=== PATIENT | female | born 1950 | race Caucasian/White ===

== ENCOUNTER 2023-05-21 08:53 | Emergency (ER) | payer MEDICARE, SELFPAY ==
[2023-05-21 09:03] VITALS: BP 131/63; PULSE 83; RESP 16; TEMP 36.8; O2SAT 96
--- NOTE | 2023-05-21 09:11 | ED.EAR ---
HPI - Ear Problem General Chief complaint: Ear Stated complaint: Right Ear Pain Time Seen by Provider: 05/21/23 09:11 Source: patient, RN notes reviewed and old records reviewed Mode of arrival: ambulatory Limitations: no limitations History of Present Illness HPI Narrative: 73-year-old female who presents to [facility] with complaints of right ear pain which started Wednesday day 4 of symptoms. Patient reports tht she called her doctor's office and was told to get ear drops at pharmacy for the ear pain and to take Tylenol for pain also. She states that she was told if no better to make appointment to be seen or go to express care. Patient deies any feves chills or sweats, denies any body aches or any sore throat or acute sinus congestion of cough. MD Complaint: ear pain Location: right ear Duration: constant Severity: moderate Relieving factors: ear drops and other (Tylenol) Discharge from ear: Reports no Treatment prior to arrival: eardrops and oral analgesic (tylenol) Related Data Home Medications Medication Instructions Recorded Confirmed atorvastatin 40 mg tablet 40 mg DAILY 05/21/23 05/21/23 chlorthalidone 25 mg tablet 12.5 mg DAILY 05/21/23 05/21/23 lisinopril 20 mg tablet 20 mg DAILY 05/21/23 05/21/23 Allergies Allergy/AdvReac Type Severity Reaction Status Date / Time No Known Allergies Allergy Verified 05/21/23 09:10 Review of Systems Review of Systems: CONSTITUTIONAL: Denies malaise, chills, sweats, or fever. EYES: Denies visual changes, redness, or discharge. ENT: Reports no rhinorrhea, congestion, sinus pain, right otalgia and no sore throat. CARDIOVASCULAR: Denies chest pain, palpitations, or edema. RESPIRATORY: Reports cough.? Denies dyspnea. GASTROINTESTINAL: Denies abdominal pain, nausea, vomiting, diarrhea SKIN: Denies rash or itching. MUSCULOSKELETAL: Denies myalgia. NEUROLOGIC: Denies headache. All systems reviewed & are unremarkable except as noted in HPI and below PMFSH Past Medical History Medical History (Updated 05/21/23 @ 09:27 by Ama Solano NP) Breast cancer Diverticulitis Elevated cholesterol Hypertension Surgical History Surgical History (Updated 05/21/23 @ 09:28 by Ama L. Xiomara, PILOT BOAT OPERATOR) History of lumpectomy of right breast radiation treatment History of total left hip arthroplasty History of total right knee replacement Status post cataract extraction of both eyes with insertion of intraocular lens Social History Social History (Updated 05/21/23 @ 09:32 by Ama Solano NP) Smoking status: Never smoker Alcohol intake: unknown Substance use type: does not use Living arrangements: with family Occupation/Education: retired Gender identity (if verbalized by the patient): Female Comments At time of signature, agree with nursing past medical, surgical, social and family history. There is no relevant family history pertinent to the presenting complaint Exam Narrative: GENERAL: Well-appearing, well-nourished, and in no acute distress. HEAD: Normocephalic EYES: PERRLA, conjunctivae clear ENT: Nares clear, turbinates edematous and erythematous, clear discharge. Mucous membranes moist.Right TM red,Left TM pearly horta with dull light reflex bilaterally; no tragal tenderness. Oropharynx erythematous without lesions. Tonsils not enlarged and without exudate, no drooling, no hoarseness, no trismus, uvula midline. NECK: Supple. No lymphadenopathy CHEST: Clear to auscultation, breath sounds equal. No wheezing, rhonchi, rales, or stridor. No respiratory distress, speaks in full sentences.SAO2 96% on room air HEART: Regular rate and rhythm. No murmur heard. SKIN: Warm, dry, no rash. NEURO: Alert and oriented x3. PSYCH: Normal mood and affect Course Course Emergency Course: Patient is aware of diagnosis, understands and agrees to treatment plan.? Anticipatory guidance given.? Patient agrees to follow-up as direct
== END 2023-05-21 09:38 | disposition home or self-care (01) ==
PROVIDERS: Emergency Provider Registered Nurse
DX: H66.91 Otitis media, unspecified, right ear (principal); I10 Essential (primary) hypertension; Z79.899 Other long term (current) drug therapy; Z85.3 Personal history of malignant neoplasm of breast
CPT/HCPCS: 99213; G0463

== ENCOUNTER 2023-06-24 09:26 | Emergency (ER) | payer MEDICARE, SELFPAY ==
[2023-06-24 09:35] VITALS: BP 128/66; PULSE 88; RESP 18; TEMP 36.5; O2SAT 96
--- NOTE | 2023-06-24 09:47 | ED.GENADULT ---
HPI - General Adult General Chief complaint: Upper Respiratory Infection Stated complaint: cough Source: patient, RN notes reviewed and old records reviewed Mode of arrival: ambulatory Limitations: no limitations History of Present Illness HPI narrative: 73-year-old female presents to [facility] with complaints productive cough for 2-3 weeks. Patient states cough is painful with green production. Patient taking [id number] medications with no relief. Patient denies dizziness, weakness, vomiting. MD complaint: Cough Onset (ago): week(s) (2-3) Related Data Home Medications Medication Instructions Recorded Confirmed atorvastatin 40 mg tablet 40 mg DAILY 05/21/23 06/24/23 chlorthalidone 25 mg tablet 12.5 mg DAILY 05/21/23 06/24/23 lisinopril 20 mg tablet 20 mg DAILY 05/21/23 06/24/23 Allergies Allergy/AdvReac Type Severity Reaction Status Date / Time No Known Allergies Allergy Verified 05/21/23 09:10 Review of Systems Constitutional: Constitutional: Reports no additional constitutional complaints, Denies body ache(s), Denies chills, Denies fatigue, Denies fever(s) and Denies headache(s) Eyes: Eyes: Reports no additional eye complaints and Denies blurry vision ENT: Reports system reviewed and no additional complaints, except as documented, Denies vertigo, Denies dizziness, Denies ear discharge, Denies otalgia, Denies facial pain, Denies headache(s), Denies nasal congestion, Denies nasal discharge, Denies sinus pain, Denies sinus pressure and Denies sore throat Cardiovascular: Cardiovascular: Reports no additional cardiovascular complaints, Denies chest pain, Denies chest pain at rest, Denies rapid heart rate and Denies dyspnea Respiratory: Respiratory: Reports no additional respiratory complaints, Reports chest congestion, Reports cough, Reports excessive phlegm production ( thick green), Denies pain on inspiration, Reports pain with cough and Denies dyspnea Gastrointestinal: Gastrointestinal: Denies abdominal pain, Denies diarrhea, Denies nausea and Denies vomiting Integumentary/Breasts: Skin/Breast: Denies rash Neurologic: Reports system reviewed and no additional complaints, except as documented, Denies vertigo, Denies dizziness and Denies headache(s) Endocrine: Endocrine: Denies fatigue PMF Past Medical History Medical History Breast cancer Diverticulitis Elevated cholesterol Hypertension Surgical History Surgical History History of lumpectomy of right breast radiation treatment History of total left hip arthroplasty History of total right knee replacement Status post cataract extraction of both eyes with insertion of intraocular lens Social History Social History Smoking status: Never smoker Alcohol intake: unknown Substance use type: does not use Living arrangements: with family Occupation/Education: retired Gender identity (if verbalized by the patient): Female Comments At the time of my signature, I reviewed and agree with the nursing past medical, surgical, social, and family history. There is no relevant family history pertinent to the patient complaint. Exam Const: General: cooperative, healthy appearing, no acute distress and well nourished Nutritional Appearance: well nourished Orientation/consciousness: patient oriented x3 Limitations: no limitations HENMT: Head: normal to inspection and normocephalic Ears: external ears normal, TM's normal bilaterally, mastoids normal and Abnormal EAC present Face/Nose/Sinus: normal facial exam Face and sinus: normal facial exam Mouth: Yes Normal oral and palatal mucosa present, Yes oropharynx normal and Yes moist mucous membranes Throat: tonsils normal, uvula midline and no uvular edema Eyes: General: appearance normal, both eyes and all related structures Scl
== END 2023-06-24 10:05 | disposition home or self-care (01) ==
PROVIDERS: Emergency Provider Registered Nurse
DX: J20.9 Acute bronchitis, unspecified (principal); E78.00 Pure hypercholesterolemia, unspecified; I10 Essential (primary) hypertension; Z85.3 Personal history of malignant neoplasm of breast; Z90.11 Acquired absence of right breast and nipple; Z96.651 Presence of right artificial knee joint; Z96.1 Presence of intraocular lens; Z98.42 Cataract extraction status, left eye; Z98.41 Cataract extraction status, right eye
CPT/HCPCS: 99213; G0463

== ENCOUNTER 2023-07-15 08:33 | Emergency (ER) | payer MEDICARE, SELFPAY ==
--- NOTE | ~2023-07-15 | XR_ITS ---
Clinical Indication: Cough PA and lateral views of the chest: Comparison: None Findings: The lungs are clear, without evidence of focal consolidation or pleural effusion. Cardiome diastinal silhouette is within normal limits. Bones and soft tissues are unremarkable. Impression: Normal chest. Reviewed, dictated and finalized at [facility]. 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
[2023-07-15 08:44] VITALS: BP 117/60; PULSE 84; RESP 20; TEMP 36.6; O2SAT 97
[2023-07-15 09:00] VITALS: BP 117/60; PULSE 84; RESP 20; TEMP 36.6; O2SAT 97
--- NOTE | 2023-07-15 09:08 | ED.URI ---
HPI - URI/Sore Throat General Chief Complaint: Upper Respiratory Infection Stated Complaint: Cough Time Seen by Provider: 07/15/23 09:09 Source: patient Mode of arrival: ambulatory Limitations: no limitations History of Present Illness HPI Narrative: 73 y/o female with hx HTN and breast CA presented for c/o cough for 2 months. Cough is productive of thick green sputum. States she was seen 06/24 for the same complaint, prescribed doxy and benzonatate without significant improvement. Started Mucinex DM. Denies sob, wheezing, hemoptysis, fatigue, n/v/d/f/c. Related Data Home Medications Medication Instructions Recorded Confirmed atorvastatin 40 mg tablet 40 mg DAILY 05/21/23 07/15/23 chlorthalidone 25 mg tablet 12.5 mg DAILY 05/21/23 07/15/23 lisinopril 20 mg tablet 20 mg DAILY 05/21/23 07/15/23 Allergies Allergy/AdvReac Type Severity Reaction Status Date / Time No Known Allergies Allergy Verified 07/15/23 09:00 Review of Systems Review of Systems: CONSTITUTIONAL: Denies body aches, fever, chills, or sweats. EYES: Denies visual changes, redness, or discharge. ENT: Denies rhinorrhea, congestion, sore throat, or otalgia. CARDIOVASCULAR: Denies chest pain, palpitations, or edema. RESPIRATORY: Reports cough, denies sob, wheezing. SKIN: Denies rash, itching, or wounds. MUSCULOSKELETAL: Denies back pain, joint pain, or myalgia. NEUROLOGIC: Denies headache, numbness, tingling, or weakness. All systems reviewed & are unremarkable except as noted in HPI and below PMFSH Past Medical History Medical History Breast cancer Diverticulitis Elevated cholesterol Hypertension Surgical History Surgical History History of lumpectomy of right breast radiation treatment History of total left hip arthroplasty History of total right knee replacement Status post cataract extraction of both eyes with insertion of intraocular lens Social History Social History Smoking status: Never smoker Alcohol intake: unknown Substance use type: does not use Living arrangements: with family Occupation/Education: retired Gender identity (if verbalized by the patient): Female Comments At time of signature, I have reviewed and agree with nursing past medical, surgical, social and family history unless otherwise noted. Please see nursing chart for further information. There is no relevant family history pertinent to the presenting complaint Exam Narrative: GENERAL: Well-appearing, in no acute distress. EYES: EOMI. No redness or drainage. Conjunctivae normal. ENT: Mucous membranes pink and moist. No rhinorrhea. NECK: Normal AROM. Supple. CHEST: No respiratory distress. Wheezing to bases. Occasional moist potable water treatment operator cough. HEART: Regular rate and rhythm. No murmur appreciated. ABDOMEN: Soft, nontender, nondistended, normal active bowel sounds. EXTREMITIES: Normal range of motion. No edema. SKIN: Warm, dry, no rash. Capillary refill normal. Normal skin turgor. NEURO: Alert and oriented x3. Gait steady. PSYCH: Normal affect. Talkative Course Course Emergency Course: Patient is aware of diagnosis, understands and agrees to treatment plan. Anticipatory guidance given. Patient agrees to follow-up as directed and is aware of reasons to seek care at the emergency department. Portions of this record may have been created with voice recognition software Level of Care: Express Care Visit Vital Signs Vital signs: Vital Signs Temperature 97.9 F 07/15/23 08:44 Pulse Rate 84 07/15/23 08:44 Respiratory Rate 20 07/15/23 08:44 Blood Pressure 117/60 07/15/23 08:44 Pulse Oximetry 97 07/15/23 08:44 Oxygen Delivery Room Air 07/15/23 08:44 Temperature 97.9 F 07/15/23 09:00 Pulse Rate 84 07/15/23 09:00 Respiratory Rate 20 07/15/23
== END 2023-07-15 09:28 | disposition home or self-care (01) ==
PROVIDERS: Emergency Provider Nurse Practitioner Family
DX: J40 Bronchitis, not specified as acute or chronic (principal); E78.00 Pure hypercholesterolemia, unspecified; I10 Essential (primary) hypertension; Z85.3 Personal history of malignant neoplasm of breast; Z90.11 Acquired absence of right breast and nipple; Z96.642 Presence of left artificial hip joint; Z96.651 Presence of right artificial knee joint; Z96.1 Presence of intraocular lens; Z98.42 Cataract extraction status, left eye; Z98.41 Cataract extraction status, right eye
CPT/HCPCS: 71046; 99213; G0463

== ENCOUNTER 2025-01-04 08:31 | Emergency (ER) | payer MEDICARE, SELFPAY ==
--- OUTSIDE RECORDS SUMMARY | 2025-01-04 08:36 | XMS_ITS | Encounter Summary ---
Author Organization [facility] Address [address] [place] [address] Care Team Providers Care Security Risk Analyst Name Role Phone Shelly Bolivar MD Primary Care Provider [phone] Encounter Details Date Type Department Care Team (Latest Contact Info) Description 11/02/2008 Outpatient Historical [facility], [address] Leonor Mejia MD NO ADDRESS ON FILE Other and Unspecified Hyperlipidemia Social History Tobacco Use Types Packs/Day Years Used Date Smoking Tobacco: Never Assessed Comments No Sex and Gender Information Value Date Recorded Sex Assigned at Not on file Legal Sex Female 5:39 AM INTERFACE DEVELOPER Gender Identity Not on file Sexual Orientation Straight 03/20/2024 9: 57 AM CDT documented as of this encounter Plan of Treatment Upcoming Encounters Date Type Department Care Team (Late st Contact Info) Description 04/16/2025 9:00 AM INTERFACE DEVELOPER 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 [facility] Primary Care [address] [address] Shelly Boilvar MD [address] [phone] documented as of this encounter Visit Diagnoses Diagnosis Other and unspecified hyperlipidemia documented in this encounter Care Teams Security Risk Analyst Relationship Specialty Start Date End Date Shelly Bolivar MD [address] [phone] PCP - General Family Practice 03/12/20 documented as of this encounter
--- OUTSIDE RECORDS SUMMARY | 2025-01-04 08:36 | XMS_ITS | Encounter Summary ---
Author Organization [facility] Address [address] [place] [address] Care Team Providers Care Maintenance Worker Municipal Name Role Phone Shelly Bolivar MD Primary Care Provider [phone] Reason for Visit * Reason Comments Clinical Consult Before Scheduling Encounter Details Date Type Department Care Team (Late st Contact Info) Description 04/25/2024 Telephone [facility] Primary Care [facility] [address] [place] [address] [address] [place] [address] Shelly Bolivar MD [address] [facility] [address] [place] [address] Clinical Consult Before Scheduling Social History Tobacco Use Types Packs/Day Years Used Date Smoking Tobacco: Former Cigarettes 2.1 2 0 11/12/1972 - 11/12/1974 Smokeless Tobacco: Never Comments:quit 1974 Alcohol Use Standard Drinks/Week Comments Yes 1.7 (1 standard drink = 0.6 oz p ure alcohol) Comments No Sex and Gender Information Value Date Recorded Sex Assigned at Not on file Legal Sex Female 5:39 AM BEAD PICKER Gender Identity Not on file Sexual Orientation Straight 03/20/2024 9: 57 AM CDT documented as of this encounter Miscellaneous Notes * Telephone Encounter - Paulette Murillo - 04/25/2024 3:05 PM CST Appt was made for today at 2:00pm. PICKER * Telephone Encounter - Lotus Reynolds - 04/25/2024 8:15 AM CST Copied from [facility] #[id number]. Topic: Symptomatic Care >> Apr 25, 2024 8:07 AM Lotus S wrote: Caller has new symptoms and is seeking care. Age Range/Symptom: Adult: 18+ - Other Symptoms: Depression Does patient have any of the following other urgent symptoms: No urgent symptoms requiring warm call transfer {Patient Access Instructions Verify in [facility] if the Clinic offers Walk In hours If no walk in hours or patient prefers to schedule, then schedule appointment with Clinic (Does notneed to be 24 - 48 hours) Search Team based scheduling for SAME DAY [166] Search Team based scheduling for OFFICE VISIT ESTABLISHED [130] Search Team based scheduling for VIDEO VISIT [674] Were you able to schedule appointment within patient's desired timeframe? No [place] the [place] in[place] Unable to schedule appointment within patient's desired timeframe. Patient declined all other options for immediate care, preferring to schedule first available. Scheduled appointment for 05/15. If this is not clinically appropriate, please contact patient. PICKER documented in this encounter Plan of Treatment Upcoming Encounters Date Type Department Care Team (Late st Contact Info) Description 04/16/2025 9:00 AM BEAD PICKER 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 [facility] Primary Care [address] [phone] Shelly Bolivar MD [address] [phone] documented as of this encounter Visit Diagnoses Not on filedocumented in this encounter Additional Health Concerns Assessment Noted Time PHQ-9 Depression Total Score: 4 04/25/20 24 2:00 PM BEAD PICKER documented as of this encounter Care Teams Maintenance Worker Municipal Relationship Specialty Start Date End Date Shelly Bolivar MD [address] [place] [phone] PCP - General Family Practice 03/12/20 documented as of this encounter
--- OUTSIDE RECORDS SUMMARY | 2025-01-04 08:36 | XMS_ITS | Continuity of Care Document ---
Author Organization [facility] Address [address] [place] [address] Phone Care Team Providers Care Mule Rider Name Role Phone Joby Cobb Unavailable Unavailable Allergies, Adverse Reactions, Alerts Substance Reaction Status Criticality No Known Allergies Active No Inform ation Medications Medication Instructions Dosage Effective Dates (start - stop) Status Comments lisinopril 2.5 mg tablet take 1 tablet (2.5MG) by oral route every day 2.5 MG - Active lovastatin 10 mg tablet take 1 tablet (10MG) by oral route every day with the evening meal 10 MG - Active Advance Directives Directive Yes / No Effective Date File Name No Information Encounters Encounter Description Practice Location Reason(s) For Visit Diagnoses Date Provider Providers Copied on Encounter [facility] , [address], [place], [address], [place] tel:[phone] [facility] [place] LumbagoPain in joint involving pelvic region and thigh 4 Jordyn Hemphill. [address], [place], [address]. [phone] [facility] , [address], [place], [address], [place] tel:[phone] [facility] [place] Pain in joint involving shoulder region 2 Jordyn Orozco [address], [place], [address]. tel:[phone] [facility] , [address], [place], [address], [place] tel:[phone] [facility] [place] Pain in joint involving shoulder region 2 Jordyn Hemphill. [address], [place], [address]. tel:[phone] Family History Family Member Type Diagnosis Age At Onset No Information Payers Payer name Insurance type Covered democrat ID Authoriza tion(s) No Information Social History Type Description Quantity Date Captured Comments Sex Female Smoking Status No Information Chief Complaint And Reason For Visit No Information Reason For Referral Reason For Referral No Information History Of Present Illness Encounter Date Complaint History Of Prese nt Illness No Information Functional Status Date Functional Assessmen t No Information Instructions Date Instruction Additional Infor mation No Information Assessments Type Assessment Date No Information Patient Care Teams Name Effective Dates (start - stop) Status Members No Information
--- OUTSIDE RECORDS SUMMARY | 2025-01-04 08:36 | XMS_ITS | Clinical Summary ---
[facility] [employer] Address [address] [place] [address] Care Team Providers Care Solar Installation Manager Name Role Phone Shelly Bolivar MD Primary Care Provider Allergies Active Allergy Reactions Criticality Noted Date Comments Poison Krysta Extract Rash Low 01/23/2015 Medications atorvastatin (LIPITOR) 40 mg tabletIndications:M ixed hyperlipidemia TAKE 1 TABLET(40 MG) BY MOUTH DAILY 100 Tablet 3 4 Active lisinopriL (PRINIVIL) 20 mg tabletIndications:E ssential hypertension TAKE 1 TABLET(20 MG) BY MOUTH DAILY 100 Tablet 3 4 Active chlorthalidone (HYGROTON) 25 mg tabletIndications:E ssential hypertension TAKE 1/2 TABLET BY MOUTH EVERY DAY WITH ORANGE JUICE AND BANANA 45 Tablet 3 5 Active Active Problems Problem Noted Date Diagnosed Date Prediabetes 04/06/2023 Assessment & Plan (10/08/2023 7:27 PM CDT): Last A1c 6.0%; work on healthy diet, avoid sweets, simple carbohydrates. Monitor blood sugar. History of colon polyps 09/06/2019 History of partial knee replacement 09/12/2017 History of left hip replacement 09/29/2016 Mixed hyperlipidemia 06/30/2016 Assessment & Plan (10/08/2023 7:27 PM CDT): Controlled with atorvastatin. Will monitor lipids, continue current medication. Essential hypertension 05/29/2015 Assessment & Plan (10/08/2023 7:27 PM CDT): BP controlled with chlorthalidone, lisinopril. Will monitor renal function, BP and continue current medication. Hx of breast cancer 04/14/2014 Overview (05/14/2014): right , DCIS, radiation, node neg Assessment & Plan (10/08/2023 7:27 PM CDT): Due for mammogram - ordered this encounter. Major depressive disorder, single episode 2013 Assessment & Plan (10/08/2023 7:27 PM CDT): Stable. Doing well. Supportive counseling given. Continue monitoring. Resolved Problems Problem Noted Date Diagnosed Date Resolved Date Midline low back pain with l eft-sided sciatica 05/29/2015 10/09/2020 Left hip pain 05/29/2015 09/29/2016 Left sided sciatica 11/21/2014 05/29/20 15 Depression 08/10/2013 09/29/2016 Hyperlipidemia 06/30/2016 HTN (hypertension) 5 Encounters Date Type Department Care Team Description 12/27/2024 External Device Data [facility] Provider, Abstract 12/26/2024 External Device Data [facility] Provider, Abstract 12/05/2024 External Device Data [facility] Provider, Abstract 11/28/2024 External Device Data [facility] Provider, Abstract 11/07/2024 External Device Data [facility] Provider, Abstract 11/02/2024 External Device Data [facility] Provider, Abstract 11/01/2024 External Device Data [facility] Provider, Abstract 10/31/2024 External Device Data [facility] Provider, Abstract 10/24/[address] [facility] [address] [place] [phone] Shelly Bolivar MD 10/24/[address] [facility] [address] [place] [address] Shelly Bolivar MD 10/24/[address] [facility] [address] [phone] Shelly Bolivar MD Needs Orders Written from Last 3 Months Immunizations Immunization Administration Dates Next Due (COMIRNATY)(12 YR UP) COVID- 19 VACCINE, MRNA, SPIKE PROTEIN, LNP, ROYER(PF) 30 MCG/0.3 ML IM SUSP 03/19/2023 (PFIZER)(12 YR UP) COVID-19 VACCINE - EMERGENCY USE AUTHORIZATION, MRNA, [id number](PF) 30 MCG/0.3 ML IM SUSP 11/06/2021,03/16/2021 (PNEUMOVAX 23)(50 YRS UP) PN EUMOCOCCAL POLYSACCHARIDE (PPV23) 0.5 ML, IM 05/29/2015 (PREVNAR 13)(6 WKS UP) PNEUM OCOCCAL CONJUGATE (PCV13) 0.5 ML, IM 06/30/2016 (TDVAX)(7 YRS UP) TETANUS AN D DIPHTHERIA TOXOIDS, ADSORBED (2 LF OF TETANUS TOXOID AND 2 LF OF DIPHTHERIA TOXOID), 0.5ML (PF), IM 10/02/2007 INFLUENZA VACCINE QUADRIVALE NT 6 MOS UP CELL DERIVED PF IM 03/28/2020 Influenza Seasonal Unspecifi ed Formulation IM 04/05/2023,03/14/2022,04/08/2021,05/23 Family History Medical History Relation Name Comments Healthy Brother Cancer Mother breast Heart Failure Mother after tri ple bypass age 68 Breast Cancer Sister Healthy Sister Relation Name Status Comments Brother Alive Father Maternal Grandfather Maternal Grandmother Mother Paternal Grandfather Paternal Grandmother Sister Alive Social History Tobacco Use Types Packs/Day Years Used Date Smoking Tobacco: Former Cigarettes 2.1 2 0 11/12/1972 - 11/12/1974 Smokeless Tobacco: Never Tobacco Cessation:Counseling Given: Not Answered Comments:quit 1974 Alcohol Use Standard Drinks/Week Comments Yes 1.7 (1 standard drink = 0.6 oz p ure alcohol) Comments No Sex and Gender Information Value Date Recorded Sex Assigned at Not on file Legal Sex Female 5:39 AM SHARED SERVICES AND OUTSOURCING MANAGER Gender Identity Not on file Sexual Orientation Straight 03/20/2024 9: 57 AM CDT Last Filed Vital Signs Vital Sign Reading Time Taken Comments Blood Pressure 126/76 10/02/2024 9:30 AM CDT Pulse 69 10/02/2024 9:30 AM CDT Temperature 36.2 C (97.1 F) 10/02/2024 9:30 AM CDT Respiratory Rate 16 10/02/2024 9:30 AM CDT Oxygen Saturation 97% 10/02/2024 9:30 AM CDT Inhaled Oxygen Concentration - - Weight 74.4 kg (164 lb) 10/02/2024 9:30 AM CDT Height 162.6 cm (5' 4) 10/02/2024 9:30 AM CDT Body Mass Index 28.15 10/02/2024 9:30 AM CDT Plan of Treatment Upcoming Encounters Date Type Department Care Team (Late st Contact Info) Description 04/16/2025 9:00 AM SHARED SERVICES AND OUTSOURCING MANAGER 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 [facility] [address] [place] [phone] Shelly Bolivar MD [address] [place] [phone] Health Maintenance Due Date Last Done Comments FIT-DNA Q 3 years 1995 Flex Sig/CT Colonography Q 5 years 1995 ZOSTER VACCINE (1 of 2) 2000 DTAP/TDAP/TD VACCINES (1 - Tdap) 10/03/2007 10/02/19 08 FIT/FOBT Q 1 year 05/28/2018 05/28/2017 OSTEOPOROSIS SCREENING 07/08/2021 07/08/2016, 2016 COVID-19 Vaccine (6 - 2023-2 5 season) 2024 03/19/2023, 11/06/2021, 03/16/2021, Additional history exists BREAST CANCER SCREENING 01/02/2025 01/03/20 24, 01/03/2024, 12/30/2022, Additional history exists INFLUENZA VACCINE (#1) 2025 4, 04/05/2023, 03/31/2022, Additional history exists RSV VACCINE (60+ or ) (1 - 1-dose 75+ series) 2025 COLORECTAL SCREENING 08/22/2028 08/23/2023, 08/01/2018, 08/01/2018, Additional history exists Colorectal Cancer Screening 08/22/2028 PNEUMOCOCCAL VACCINE 50+ YEARS Completed 06/30/2016 , 05/29/2015 Procedures Procedure Name Priority Date/Time Associated Diagnosis Comments MAMMO SCREENING BILAT Routine 12/26/2020 ENDOSCOPY, COLON, SCREENING Routine 08/01/2018 OCCULT BLOOD IMMUNOASSAY, COLORECTAL SCREEN Routine 05/28/2017 9:56 PM SHARED SERVICES AND OUTSOURCING MANAGER Screen for colon cancer XR DEXA BONE DENSITY 2 SITES Routine 07/08/2016 8:45 AM SHARED SERVICES AND OUTSOURCING MANAGER Menopause from Last 3 Months or Most Recently Relevant to Health Maintenance Results * MAMMO SCREENING BILAT (12/26/2020) Anatomical Region Laterality Modality Breast Bilateral Mammography Shelly Bolivar MD MAMMO ORDERABLES Edited Result - Final * ENDOSCOPY, COLON, SCREENING (08/01/2018) us Maxwell Lares MD GI PROCEDURE ORDERABLES F inal Result EXTERNAL LAB * OCCULT BLOOD IMMUNOASSAY, COLORECTAL SCREEN (05/28/2017 9:56 PM SHARED SERVICES AND OUTSOURCING MANAGER) OCCULT BLOOD, STOOL Negative Negative 06/01/2017 10:43 PM SHARED SERVICES AND OUTSOURCING MANAGER [facility] Stool STOOL SPECIMEN / Unknown Collection / Unknown 05/28/2017 9:56 PM SHARED SERVICES AND OUTSOURCING MANAGER 06/01/2017 9:56 PM SHARED SERVICES AND OUTSOURCING MANAGER Leonor Mejia MD BODY FLUIDS AND STOOLS Blossom l Result [facility] [place] [facility] CLIA# [id number] [address] [place] [id number] * XR DEXA BONE DENSITY 2 SITES (07/08/2016 8:45 AM SHARED SERVICES AND OUTSOURCING MANAGER) Anatomical Region Laterality Modality Digital Radiogra phy 07/08/2016 8:45 AM SHARED SERVICES AND OUTSOURCING MANAGER Impressions 07/08/2016 8:55 AM SHARED SERVICES AND OUTSOURCING MANAGER IMPRESSION: Normal BMD. Lumbar Spine T-score 3.8 Right femoral neck T-score 2.7 Comments: None. Statistical change: No prior exam is available. Definitions: Normal: T-score above -1.0 Osteopenia T-score less than -1.0 and above -2.5 Osteoporosis: T-score <= -2.5 Follow-up Recommendations: Patients without high risk factors for osteoporosis T-score -1.0 to -1.5 - Consider repeat BMD in 5-10 years T-score -1.5 to - 2.0 - Consider repeat BMD in 3-5 years T-score -2.0 to - 2.5 - Consider repeat BMD every 2 years Patients on treatment for osteoporosis 1-2 years after initiation of treatment and every 2 years [address] Almaz Palm MD DICTATION LOCATION: Location 1 - [facility] 07/08/2016 8:55 AM SHARED SERVICES AND OUTSOURCING MANAGER EXAMINATION: BONE DENSITY STUDY (DXA) DATE: 07/08/2016 8:45 AM CLINICAL HISTORY: 66 years postmenopausal female. PROCEDURE: Planar images of the lumbar spine and right hip using a LUNAR DEXA scanner for bone mineral density determination (BMD). Status post left hip replacement FINDINGS: Lumbar Spine (L1-L4) T-score 3.8 1.661 g/sq cm Right femoral neck T-score 2.7 1.350 g/sq cm Detailed report placed in Imaging Section of [employer] EMR. Procedure Note Almaz Palm MD - 07/08/2016 EXAMINATION: BONE DENSITY STUDY (DXA) DATE: 07/08/2016 8:45 AM CLINICAL HISTORY: 66 years postmenopausal female. PROCEDURE: Planar images of the lumbar spine and right hip using a LUNAR DEXA scanner for bone mineral density determination (BMD). Status post left hip replacement FINDINGS: Lumbar Spine (L1-L4) T-score 3.8 1.661 g/sq cm Right femoral neck T-score 2.7 1.350 g/sq cm Detailed report placed in Imaging Section of [facility] EMR. IMPRESSION IMPRESSION: Normal BMD. Lumbar Spine T-score 3.8 Right femoral neck T-score 2.7 Comments: None. Statistical change: No prior exam is available. Definitions: Normal: T-score above -1.0 Osteopenia T-score less than -1.0 and above -2.5 Osteoporosis: T-score <= -2.5 Follow-up Recommendations: Patients without high risk factors for osteoporosis T-score -1.0 to -1.5 - Consider repeat BMD in 5-10 years T-score -1.5 to - 2.0 - Consider repeat BMD in 3-5 years T-score -2.0 to - 2.5 - Consider repeat BMD every 2 years Patients on treatment for osteoporosis 1-2 years after initiation of treatment and every 2 years thereafter [address] Dr[address] Almaz Palm MD DICTATION LOCATION: Location 1 - 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
--- OUTSIDE RECORDS SUMMARY | 2025-01-04 08:37 | XMS_ITS | Clinical Summary ---
Author Organization [facility] Address [address] [facility] [place] [address] Care Team Providers Care Heel Coverer Machine Operator Name Role Phone Mercy Arauz DO Unavailable Shelly Bolivar MD Primary Care Provider [phone] Source Comments [facility] Affiliates and Associated Physician Practices is amultiple site organization consisting of ambulatory clinics and hospital sitesin [place], [place], [place] and [place]. This disclosure is being madepursuant to the Care Everywhere program and may not contain all information available regarding this patient. Last updated 18.[facility] Allergies Active Allergy Reactions Criticality Noted Date Comments Extract Of Poison Krysta 01/23/2015 Medications * Be aware that medications may not be up to date on this document. Alwaysverify current medications with the patient. lisinopril (PRINIVIL; ZESTRIL) 20 MG tablet Take 1 (one) tablet by mouth 6 Active atorvastatin (LIPITOR) 40 MG tablet 8 Active chlorthalidone (HYGROTON) 25 MG tablet Take 0.5 (one-half) tablet by mouth once daily Active triamcinolone acetonide (KENALOG) 0.1 % cream Apply to affected area 2 times daily 9 Active hydrocortisone (HYTONE) 2.5 % cream Apply rectally at bedtime for 7 days 30 g 0 Active albuterol HFA (Proventil; Ventolin; Proair) 108 (90 Base) MCG/ACT inhaler INHALE 2 PUFFS BY MOUTH FOUR TIMES DAILY NEEDED FOR SHORTNESS OF BREATH OR WHEEZING 4 Active Active Problems Problem Noted Date Diagnosed Date Abdominal pain, RUQ (right upper quadrant) 12/30 Abdominal pain, LLQ (left lower quadrant) 2021 Diarrhea of presumed infectious origin 0 Hematochezia 09/06/2019 History of colon polyps 09/06/2019 Ductal carcinoma in situ (DCIS) of right breast 03/06/2015 Cancer Staging:Pathologic stage from 10/09/2015:Stage 0(Tis (DCIS), N0, cM0) - Signed by Phill Graham MD on 10/09/2015 Major depressive disorder, single episode 2013 Hypertension 11/02/2008 Hypercholesterolemia 11/02/2008 Menopausal symptoms 11/02/2008 Resolved Problems Problem Noted Date Diagnosed Date Resolved Date Breast cancer - DCIS, right 04/09/2014 03/06/2015 Cancer Staging:Clinical:Stage 0(Tis (DCIS), N0, cM0) - Signed by Cecilia Torres MD on 12/03/2014 Pathologic:Stage 0(Tis (DCIS), N0(i-), cM0) - Signed by Cecilia Torres MD on 12/03/2014 Overview (12/03/2014): Right. High grade DCIS. Tis(DCIS)N0(i-)M0, stage 0. ER/NE neg [email or web address] panel genetic testing negative S/p 04/23/2014 right partial mastectomy/SLN bx ([facility]): 1.1 cm DCIS, pos lateral margin, 1 neg node S/p 04/20/2014 right reexcision partial mastectomy ([facility]): no residual cancer Med onc: Dr. Graham: no systemic therapy Rad onc: Dr. King: adjuvant radiation therapy Dysplasia of cervix 11/02/2008 03/06/20 15 FH: breast cancer 11/02/2008 03/06/2015 Screening for cervical cancer 11/02/2008 03/06/2015 Overview (11/02/2008): 02/17/08 WNL Encounters Date Type Department Care Team Description 12/04/2024 Telephone [facility] - CONTROL VALVE MECHANIC [address] [facility] [address] [place], [place] [id number] Mercy Arauz, DO Imaging from Last 3 Months Immunizations Immunization Administration Dates Next Due Covid Pfizer primary monoval ent 12+ yr 0.3mL Purple cap 09/12/2020,08/15/2020 Family History Medical History Relation Name Comments Cancer - Prostate Brother 2 Cancer - Other Father Mesothelioma Cancer - Breast Maternal Aunt 1 Nereyda Three dif ferent great aunts Cancer - Breast Maternal Aunt 2 Yudy Three dif ferent great aunts Cancer - Breast Maternal Aunt 3 Ethyl Three dif ferent great aunts Cancer - Breast Mother Heart Disease Mother Hypercholesterolemia Mother Hypertension Mother Migraine Mother Cancer - Breast Sister BRCA negativ e Cancer - Pancreatic Sister Relation Name Status Comments Brother 1 Alive Brother 2 Father mesothelioma Maternal Aunt 1 Nereyda Maternal Aunt 2 Yudy Maternal Aunt 3 Ethyl Mother heart Sister Social History Tobacco Use Types Packs/Day Years Used Date Smoking Tobacco: Former Cigarettes 2.5 2 0 06/14/1969 - 06/14/1971 Smokeless Tobacco: Never Tobacco Cessation:Counseling Given: Not Answered Alcohol Use Standard Drinks/Week Comments Not Currently 0 (1 standard drink = 0.6 oz pur e alcohol) 1 a month Comments No Sex and Gender Information Value Date Recorded Sex Assigned at Female 02/13/2021 8:55 AM CDT 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 Sex 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 Gender Identity Female 02/13/2021 8:55 AM CDT Sexual Orientation Straight 02/13/2021 8: 55 AM CDT 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 Not on file Not on file Last Filed Vital Signs Vital Sign Reading Time Taken Comments Blood Pressure 132/82 02/23/2024 9:19 AM CDT Pulse 59 08/23/2023 8:15 AM CDT Temperature 37 C (98.6 F) 08/23/2023 8:00 AM CDT Respiratory Rate 21 08/23/2023 8:15 AM CDT Oxygen Saturation 97% 08/23/2023 8:15 AM CDT Inhaled Oxygen Concentration - - Weight 73 kg (161 lb) 02/23/2024 9:19 AM CDT Height 162.6 cm (5' 4) 02/23/2024 9:19 AM CDT Body Mass Index 27.64 02/23/2024 9:19 AM CDT Plan of Treatment Upcoming Encounters Date Type Department Care Team (Late st Contact Info) Description 01/18/2025 10:30 AM CDT Appointment [facility] [address] [place] [address] [place] [address] [place] [address] 02/28/2025 9:15 AM CDT 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 [facility] - CONTROL VALVE MECHANIC [address] [place] [address] Mercy Arauz, [address] [place], [place] [id number] Health Maintenance Due Date Last Done Comments COLOGUARD (AGES 45-75) - COLON CA SCREENING 1950 CT COLONOGRAPHY - COLON CA SCREENING 1950 FLEX SIG - COLON CA SCREENING 1950 DTAP/TDAP/TD VACCINES (1 - Tdap) 1969 PNEUMOCOCCAL VACCINE 50+ (1 of 1 - PCV) 2000 ZOSTER VACCINE (1 of 2) 2000 FIT - COLON CA SCREENING 05/28/2018 05/28/2017 COVID-19 VACCINE ( season) 2024 11/06/2021, 03/16/2021, 09/12/2020, Additional history exists DEPRESSION SCREENING 06/14/2024 MEDICARE AWV CALENDAR YEAR 2024 INFLUENZA VACCINE (#1) 2025 , 03/14/2022, 04/08/2021, Additional history exists Respiratory Syncytial Virus (RSV) Vaccine Pt: or over 60 yrs (1 - 1-dose 75+ series) 2025 MAMMOGRAM 01/02/2026 01/03/2024, 12/12, 12/30/2022, Additional history exists COLON MONITORING 08/22/2028 08/23/2023, 04/2024, 08/01/2018, Additional history exists Colorectal Cancer Screening 08/22/2028 COLONOSCOPY - COLON CA SCREENING 08/22/2033 08/23/2023, 08/23/2023, 08/01/2018, Additional history exists HEPATITIS C SCREENING Completed 03/02/2014 BONE DENSITY TESTING Completed 07/08/2016 HEPATITIS B VACCINE Aged Out No longe r eligible based on patient's age to complete this topic HIB VACCINE Aged Out No longer eligi ble based on patient's age to complete this topic HPV VACCINE Aged Out No longer eligi ble based on patient's age to complete this topic MENINGOCOCCAL (Group B) VACCINE SHARED DECISION-MAKING Aged Out No longer eligible based on patient's age to complete this topic MENINGOCOCCAL GROUPS A/C/Y/W VACCINE Aged Out No longer eligible based on patient's age to complete this topic Procedures Procedure Name Priority Date/Time Associated Diagnosis Comments MAMMO BILAT DIAGNOSTIC W SABRA Routine 01/03/2024 11:12 AM CDT History of breast cancer ENDOSCOPY, COLON, SCREENING Routine 08/23/2023 6:48 AM CDT Screening for colon cancer HEPATITIS SCREEN ACUTE Routine 03/02/2014 10:22 AM CDT High risk sexual behavior Exposure to hepatitis C from Last 3 Months or Most Recently Relevant to Health Maintenance Results * MAMMO BILAT DIAGNOSTIC W SABRA (01/03/2024 11:12 AM CDT) Anatomical Region Laterality Modality Breast Bilateral Mammography 01/03/2024 11:1 7 AM CDT Impressions 01/03/2024 11:27 AM CDT : No mammographic evidence of malignancy in either breast. Annual screening mammography is recommended. OVERALL FINAL ASSESSMENT: BI-RADS Category 2: Benign. > Interpreting Provider: Harpreet Choi MD on 01/03/2024 11:27 AM Narrative 01/03/2024 11:27 AM CDT EXAMINATION: BILATERAL DIGITAL DIAGNOSTIC MAMMOGRAM AND BILATERAL BREAST TOMOSYNTHESIS (3D) HISTORY: 73-year-old asymptomatic woman with a personal history of right breast cancer treated with breast conservation therapy. COMPARISON: Comparison is made to mammograms dating back to December 21, 2018. TECHNIQUE: Full field digital mammographic views of BILATERAL were performed, including computer aided detection (CAD) and BILATERAL digital breast tomosynthesis (DBT). BREAST PARENCHYMAL COMPOSITION: There are scattered areas of fibroglandular density. MAMMOGRAM FINDINGS: Again seen are changes of breast conservation therapy in the right breast. There is no new suspicious mass, architectural or calcification in either breast. us Mercy Arauz DO MAMMO ORDERABLES Final Result * ENDOSCOPY, COLON, SCREENING (08/23/2023 6:48 AM CDT) Report Endoscopy POC _ Patient Name: Pegeen Huy Procedure Date: 08/23/2023 6:48 AM Date of : 1950 Admit Type: Outpatient Age: 73 Gender: Female Attending MD: Maxwell Lares MD, [id number] _ Procedure: Colonoscopy Indications: High risk colon cancer surveillance: Personal history of colonic polyps, Last colonoscopy: 2018 Providers: Maxwell Lares MD (Doctor) Referring MD: Shelly Bolivar MD (Referring MD) Medicines: Monitored Anesthesia Care Complications: No immediate complications. _ Estimated Blood Loss: Estimated blood loss: none. Procedure: Pre-Anesthesia Assessment: - Prior to the procedure, a History and Physical was performed, and patient medications and allergies were reviewed. The patient is competent. The risks and benefits of the procedure and the sedation options and risks were discussed with the patient. All questions were answered and informed consent was obtained. Patient identification and proposed procedure were verified by the physician, the nurse and the briefcase sewer in the procedure room. Mental Status Examination: alert and oriented. Airway Examination: normal oropharyngeal airway and neck mobility. Respiratory Examination: clear to auscultation. CV Examination: normal. Prophylactic Antibiotics: The patient does not require prophylactic antibiotics. Prior Anticoagulants: The patient has taken no anticoagulant or antiplatelet agents. ASA Grade Assessment: II - A patient with mild systemic disease. After reviewing the risks and benefits, the patient was deemed in satisfactory condition to undergo the procedure. The anesthesia plan was to use monitored anesthesia care (MAC). Immediately prior to administration of medications, the patient was re-assessed for adequacy to receive sedatives. The heart rate, respiratory rate, oxygen saturations, blood pressure, adequacy of pulmonary ventilation, and response to care were monitored throughout the procedure. The physical status of the patient was re-assessed after the procedure. After I obtained informed consent, the scope was passed under direct vision. Throughout the procedure, the patient's blood pressure, pulse, and oxygen saturations were monitored continuously. The Colonoscope was introduced through the anus and advanced to the cecum, identified by appendiceal orifice and ileocecal valve. The colonoscopy was performed without difficulty. The patient tolerated the procedure well. The quality of the bowel preparation was excellent. The ileocecal valve, appendiceal orifice, and rectum were photographed. Findings: The digital rectal exam was normal. Pertinent negatives include no palpable rectal lesions. The rectum, sigmoid colon, descending colon, transverse colon, ascending colon, cecum, appendiceal orifice and ileocecal valve appeared normal. _ Impression: - The rectum, sigmoid colon, descending colon, transverse colon, ascending colon, cecum, ileocecal valve and appendiceal orifice are normal. - No specimens collected. Recommendation: - Return to primary care physician as previously scheduled. - Resume previous diet. - Continue present medications. - Patient has a contact number available for emergencies. The signs and symptoms of potential delayed complications were discussed with the patient. Return to normal activities tomorrow. Written discharge instructions were provided to the patient. - No repeat colonoscopy due to current age (66 years or older). Procedure Code(s): --- Professional --- 62219, Colonoscopy, flexible; diagnostic, including collection of specimen(s) by brushing or washing, when performed (separate procedure) --- Technical --- 03225, Colonoscopy, flexible; diagnostic, including collection of specimen(s) by brushing or washing, when performed (separate procedure) Diagnosis Code(s): --- Professional --- Z86.010, Personal history of colonic polyps --- Technical --- Z86.010, Personal history of colonic polyps CPT copyright 2020 [employer]. All rights reserved. The codes documented in this report are preliminary and upon yarn bleaching machine operator review may be revised to meet current compliance requirements. Dr. Maxwell Lares MD Maxwell Lares MD 08/23/2023 7:57:31 AM This report has been signed electronically. Number of Addenda: 0 Note Initiated On: 08/23/2023 6:48 AM [facility] 08/23/2023 6:48 AM CDT us Maxwell Lares MD GI PROCEDURE ORDERABLES Cristian maxwell Result - Final [facility] [place] [address] * HEPATITIS SCREEN ACUTE (03/02/2014 10:22 AM CDT) Hepatitis A Virus Antibody IgM Negative Negative [facility] ACCOUNT BILL Hepatitis B Virus Surface Antigen Negative Negative [facility] ACCOUNT BILL Hepatitis B Core Virus Antibody IgM Negative Negative [facility] ACCOUNT BILL Hepatitis C Antibody <0.1 0.0 - 0.9 s/co ratio [facility] ACCOUNT BILL Comment: Negative: < 0.8 Indeterminate: 0.8 - 0.9 Positive: > 0.9 . In order to reduce the incidence of a false positive result, the CDC recommends that all s/co ratios between 1.0 and 10.9 be confirmed by a more specific supplemental or PCR testing. [facility] offers HCV Ab w/Reflex to Verification test #[id number]. Blood specimen (specimen) BLOOD SPECIMEN / Unknown 03/02/2014 10:22 AM CDT 03/02/2014 3:11 PM CDT Narrative Resulting Agency Comment [facility] [address] [facility] [id number] us Mercy Arauz DO LAB - CHEMISTRY ORDERABLES Final Result [facility] ACCOUNT BILL [address] [place] [address] from Last 3 Months or Most Recently Relevant to Health Maintenance Insurance [facility] MANAGED MEDICARE ADV Advance Directives Documents on File Type Date Recorded Patient Mounter Expl anation Adv Directive/Living Will/POA 04/25/2014 12:41 AM Care Teams Heel Coverer Machine Operator Relationship Specialty [place] [address] [address] PCP - OBGYN 11/02/08 Shelly Bolivar MD [address] [facility] [address] [place] [id number] PCP - General Family Medicine 12/26/20
--- OUTSIDE RECORDS SUMMARY | 2025-01-04 08:37 | XMS_ITS | Encounter Summary ---
Author Organization [facility] Health Address [address] [place] [address] Care Team Providers Care Medical Office Technologist Name Role Phone Mercy Arauz DO Unavailable Leonor Mejia MD Primary Care Provider [phone] Shelly Bolivar MD Primary Care Provider Encounter Details Date Type Department Care Team (Late st Contact Info) Description 04/05/2014 [facility] Outpatient Visit [facility]TERNAL NON-[facility] [place] [address] [facility] [address] [place] [address] Social History Tobacco Use Types Packs/Day Years Used Date Smoking Tobacco: Former Cigarettes Q uit: 06/14/1971 Smokeless Tobacco: Never Alcohol Use Standard Drinks/Week Comments Yes 0 (1 standard drink = 0.6 oz pur e alcohol) 1 a month Comments No Sex and Gender Information Value Date Recorded Sex Assigned at Female 02/13/2021 8:55 AM CDT 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 Gender Identity Female 02/13/2021 8:55 AM CDT Sexual Orientation Straight 02/13/2021 8: 55 AM CDT documented as of this encounter Plan of Treatment Upcoming Encounters Date Type Department Care Team (Late st Contact Info) Description 01/18/2025 10:30 AM CDT Appointment [facility] Breast Care [address] [place] [address] [place] [id number] [place] [address] [address] [place] [address] 02/28/2025 9:15 AM CDT 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 [facility] - 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 [id number] [place] [address] [place] [address] [place] [id number] [place] [address] [place] [phone] documented as of this encounter Visit Diagnoses Not on filedocumented in this encounter Care Teams Medical Office Technologist Relationship Specialty Start Date End Date Mercy Arauz DO [address] [place] [address] [place] [id number] PCP - OBGYN 11/02/08 Leonor Mejia MD [address] [place] [address] [place] [phone] PCP - General Family Medicine 02/24/13 12/25/20 Shelly Bolivar MD [address] [phone] PCP - General Family Medicine 12/26/20 documented as of this encounter
--- NOTE | 2025-01-04 08:38 | ECG_ITS ---
Test Date: 2025-01-04 08:50:32 Measurements Intervals [place] Rate: 68 P: 58 VT: 177 QRS: 17 QRSD: 87 T: 35 QT: 417 QTc: 444 Interpretive Statements SINUS RHYTHM WARNING: DATA QUALITY MAY AFFECT INTERPRETATION No previous ECG available for comparison Electronically Signed On 01-05-2025 15:45:39 CDT by Celestino Orlando M.D.
--- OUTSIDE RECORDS SUMMARY | 2025-01-04 08:39 | XMS_ITS | Continuity of Care Document ---
Author Organization [facility] Address [address] [place] [address] Phone Care Team Providers Care Pumper Hand Name Role Phone Joby Cobb Unavailable Unavailable [...] Providers Copied on Encounter [facility] , [address], [place], [address], [place] tel:[phone] [facility] O Florence LumbagoPain in joint involving pelvic region and thigh 4 Jordyn Hemphill. [address], [place], [address]. [phone] [facility] , [address], [place], [address], [place] tel:[phone] [facility] O [place]o Pain in joint involving shoulder region 2 Jordyn Orozco [address], [place], [address]. tel:[phone] [facility] , [address], [place], [address], [place] tel:[phone] [facility] O Caro Pain in joint involving shoulder region 2 Jordyn Hemphill. [address], [place], [address]. tel:[phone] Family History Family Member Type Diagnosis Age At Onset No Information Payers Payer name Insurance type Covered green party ID Authoriza tion(s) No Information Social History [...]
[2025-01-04 08:53] VITALS: BP 125/66; PULSE 66; RESP 18; TEMP 37; O2SAT 99
--- NOTE | 2025-01-04 09:29 | ED_ITS ---
HPI - Ear Problem General Chief complaint: Ear Stated complaint: Left Ear Pain/Dizziness Time Seen by Provider: 01/04/25 08:55 Source: patient and RN notes reviewed Mode of arrival: ambulatory Limitations: no limitations History of Present Illness HPI Narrative: 74-year-old female presents Express Care complaining left ear discomfort and dizziness for approximately 1 week. Patient says she is dizzy mainly when she is lying down especially when she turns her body side to side. Patient denies any ear pain but feels like her left ear is uncomfortable. Patient denies any upper respiratory symptoms, cough, fever, slurred speech, focal weakness, facial drooping, blurry vision, vision changes, headaches, nausea, vomiting, chest pain, shortness of breath, loss of consciousness, palpitations, or any other symptoms. Patient says she has a history of Meniere's disease said she normally has meclizine in the past that really helped with her symptoms but she no longer has any. Related Data Home Medications ?Medication ?Instructions ?Recorded ?Confirmed ?Last Taken ?Type atorvastatin 40 mg tablet 40 mg DAILY 05/21/23 07/15/23 Unknown History chlorthalidone 25 mg tablet 12.5 mg DAILY 05/21/23 07/15/23 Unknown History lisinopril 20 mg tablet 20 mg DAILY 05/21/23 07/15/23 Unknown History Allergies Allergy/AdvReac Type Severity Reaction Status Date / Time No Known Allergies Allergy Verified 07/15/23 09:00 Review of Systems Review of Systems: CONSTITUTIONAL: Denies fever, chills, or sweats. EYES: Denies visual changes, redness, or discharge. ENT: Denies rhinorrhea, congestion, sore throat, or otalgia. CARDIOVASCULAR: Denies chest pain, palpitations, lightheadedness, or edema. Positive for dizziness. RESPIRATORY: Denies cough or dyspnea. GASTROINTESTINAL: Denies abdominal pain, nausea, vomiting, or diarrhea. GENITOURINARY: Denies dysuria or hematuria. SKIN: Denies rash or itching. MUSCULOSKELETAL: Denies back pain, joint pain, or myalgia. NEUROLOGIC: Denies headache, numbness, loss of consciousness, focal weakness, slurred speech, facial droop, or weakness. PSYCHIATRIC: Denies anxiety or depression. All other systems reviewed are negative, except as documented in HPI. FOR[facility], LATER [facility] Past Medical History Medical History Diverticulitis Breast cancer Elevated cholesterol Hypertension Surgical History Surgical History History of lumpectomy of right breast radiation treatment Status post cataract extraction of both eyes with insertion of intraocular lens History of total right knee replacement History of total left hip arthroplasty Social History Social History Smoking status: Never smoker Alcohol intake: unknown Substance use type: does not use Living arrangements: with family Occupation/Education: retired Gender identity (if verbalized by the patient): Female Comments At the time of my signature, I reviewed and agree with the nursing past medical, surgical, social, and family history. There is no relevant family history pertinent to the patient complaint. Exam Narrative: GENERAL: This is a well-nourished, well-developed adult, in no apparent distress . They are non ill-appearing, nontoxic appearing. HEAD: normocephalic, atraumatic. EYES: Sclera clear/white. Conjunctiva normal. Vision is grossly intact. Extraocular movements intact. Pupils PERRLA. No nystagmus. EARS: External ears normal, auditory canals clear and without drainage, TMs normal without perforation. Hearing grossly intact. NOSE: External nose normal with no obvious nasal discharge, nasal turbinates without redness, no rhinorrhea. THROAT: Mucous membranes moist, posterior pharynx clear, without erythema or swelling. Uvula midline. NECK: Neck supple, non-tender without lymphadenopathy, masses or thyromegaly. CARDIOVASCULAR: Regular rate and rhythm without gallops, or rubs. Midsystolic murmur 2/6. RESPIRATORY: Clear to auscultation. Breath sounds equal bilaterally. No wheezes, rales, or rhonchi. SKIN: warm, Dry, intact with no suspicious lesions or rash, good texture and turgor. NEURO: awake, alert, and oriented to person, place and time. There were no obvious focal neurologic abnormalities. No pronator drift. Opthalmic Tech strength equal bilaterally 5/5. Leg strength equal bilaterally 5/5. No limb ataxia. No facial droop. Tongue is midline. Cranial nerves 2-12 grossly intact. Speech is clear. EXTREMITIES: No joint tenderness, effusion, or edema noted. Course Course Emergency Course: Portions of this record may have been created with voice recognition software Level of Care: Express Care Visit Vital Signs Vital signs: Vital Signs Temperature 98.6 F 01/04/25 08:53 Pulse Rate 66 01/04/25 08:53 Respiratory Rate 18 01/04/25 08:53 Blood Pressure 125/66 01/04/25 08:53 Pulse Oximetry 99 01/04/25 08:53 Oxygen Delivery Room Air 01/04/25 08:53 Temperature 98.6 F 01/04/25 08:53 Pulse Rate 66 01/04/25 08:53 Respiratory Rate 18 01/04/25 08:53 Blood Pressure 125/66 01/04/25 08:53 Pulse Oximetry 99 01/04/25 08:53 Oxygen Delivery Room Air 01/04/25 08:53 Reviewed Medical Decision Making MDM Narrative Medical decision making narrative: EKG is normal sinus rhythm with no ischemic findings. NIH score 0. Neurological exam is unremarkable. Symptoms likely related to vertigo which could be from patient has Meniere's disease. Will prescribe patient meclizine as needed for dizziness. Discussed with patient to limit salt intake. Strict ER precautions were discussed with patient specially develops any other neurological symptoms such as slurred speech, vision changes, severe headaches, facial droop, confusion, one-sided weakness, or any other serious concerns. Discussed physical exam findings. Advised supportive measures and signs/symptoms to go to the ER. Pt is appropriate for outpt treatment and f/u. Differential Diagnosis Differential Diagnosis: Vertigo, Meniere's disease, dizziness, CVA, arrhythmia Vital Signs Vital Signs: Vital Signs Temperature 98.6 F 01/04/25 08:53 Pulse Rate 66 01/04/25 08:53 Respiratory Rate 18 01/04/25 08:53 Blood Pressure 125/66 01/04/25 08:53 Pulse Oximetry 99 01/04/25 08:53 Oxygen Delivery Room Air 01/04/25 08:53 Temperature 98.6 F 01/04/25 08:53 Pulse Rate 66 01/04/25 08:53 Respiratory Rate 18 01/04/25 08:53 Blood Pressure 125/66 01/04/25 08:53 Pulse Oximetry 99 01/04/25 08:53 Oxygen Delivery Room Air 07/24/25 08:53 ECG Data EKG #1: Attestation: I personally reviewed and interpreted this ECG as follows: ECG completion date: 01/04/25 ECG completion time: 08:50 Prior ECG tracings: not available for review EKG Interpretation: normal rate, sinus rhythm, no ectopy, no ST changes, normal QRS, normal QT, NL axis and no acute changes Critical Care Time Critical Care Time Critical Care Time: No Discharge Plan Discharge Clinical Impression: Dizziness Patient Disposition: Home Condition: Stable Instructions: Meniere Disease (ED), Dizziness (ED) Additional Instructions: Your EKG is a normal sinus rhythm today. Your dizziness is likely related to your Meniere's disease. Take meclizine as directed. Do not drive or operate machinery while taking meclizine as it may make you drowsy. Limit your sodium to 2-3 g daily. Limit your alcohol and caffeine use to 1 daily or none. Allergies, stress, monosodium glutamate, and nicotine may also exacerbate symptoms. Take a daily Zyrtec if you feel congested. Follow-up PCP in 3-5 days. He developed severe headaches, uncontrollable dizziness, severe nausea and vomiting, one-sided weakness, facial droop, slurred speech, confusion, loss of consciousness, chest pains, breathing problems, or any other serious concerns please go to the ER immediately. Patient Language: [place] Prescriptions: New meclizine 25 mg tablet 25 mg PO TID PRN (Reason: dizziness) Qty: 20 0RF No Action atorvastatin 40 mg tablet 40 mg DAILY lisinopril 20 mg tablet 20 mg DAILY chlorthalidone 25 mg tablet 12.5 mg DAILY methylprednisolone [Medrol (Mark)] 4 mg tablets,dose pack See Rx Instructions .ROUTE .COMPLEX Qty: 21 0RF Rx Instructions: orally per package directions albuterol sulfate 90 mcg/actuation HFA aerosol inhaler 2 inh inhalation QID PRN (Reason: shortness of breath or wheezing) Qty: 8.5 0RF Follow-up/Referrals: PHYSICIAN NOT ON STAFF,NONSTAFF [Primary Care Provider] - Time of Disposition: :28
== END 2025-01-04 09:39 | disposition home or self-care (01) ==
DX: R42 Dizziness and giddiness (principal); I10 Essential (primary) hypertension; E78.00 Pure hypercholesterolemia, unspecified; Z85.3 Personal history of malignant neoplasm of breast; Z90.11 Acquired absence of right breast and nipple; Z96.1 Presence of intraocular lens; Z98.42 Cataract extraction status, left eye; Z98.41 Cataract extraction status, right eye; Z96.651 Presence of right artificial knee joint; Z96.642 Presence of left artificial hip joint
CPT/HCPCS: 93005; 99213; G0463